=== PATIENT | female | born 1965 | race Caucasian/White ===

== ENCOUNTER 2025-10-04 10:24 | Outpatient (AMB) | payer OTHER, SELFPAY ==
--- OUTSIDE RECORDS SUMMARY | 2025-09-30 08:35 | XMS_ITS | Encounter Summary ---
Author Organization [facility] [place] [address] Care Team Providers Care Resident Buyer Name Role Phone Slime Colon MD Primary Care Prov ider Encounter Details Date Type Department Care Team ([facility] Contact Info) Description 09/30/2025 8:35 AM EST Lab Draw Station - [address] [id number] Chronic diarrhea; Abdominal cramping Social History Tobacco Use Types Packs/Day Years Used Date Smoking Tobacco: Former Cigarettes Smokeless Tobacco: Never Alcohol Use Standard Drinks/Week Comments Yes 1.7 (1 standard drink = 0.6 oz p ure alcohol) Housing Instability Answer Date Recorde d Are you worried that in the next 2 months you may not have stable housing? No 08/30/2024 Food Access & Nutrition Answer Date Rec orded Do you have access to a vari ety of food including fruits and vegetables? Yes 08/30/2024 Access to Healthcare Answer Date Record ed Within the last 3 months, ho w many times did you visit the emergency department for your medical care? 0 08/30/2024 Health Literacy Answer Date Recorded How often do you need to hav e someone help you when you read instructions, pamphlets, or other written material from your doctor or pharmacy? Never 08/30/2024 Caregiver: How often do you need to have someone help you when you read instructions, pamphlets, or other written material from your doctor or pharmacy? Not on file 08/30/2024 Financial Risk Answer Date Recorded How hard is it for you to pa y for the very basics like food, housing, medical care, and air conditioning / heating? Not very hard 08/30/2024 Transportation Answer Date Recorded Has the lack of transportati on kept you from meetings, work, or from getting things needed for daily living? No Has the lack of transportati on kept you from medical appointments or from getting medications? No 08/30/2024 Social Isolation Answer Date Recorded How often do you feel lonely or isolated from th ose around you? Never 08/30/2024 Food Risk Answer Date Recorded Within the past 12 months we worried whether our food would run out before we got money to buy more. Never true 08/30/2024 Within the past 12 months th e food we bought just didn't last and we didn't have money to get more. Never true 08/30/2024 Dependent Care Answer Date Recorded Do you need help finding or paying for care for your loved ones. For example, child care giver or elderly care for an older adult? No 08/30/2024 Education Answer Date Recorded Do you think completing more education or training, like finishing a GED, going to college, or learning a trade, would be helpful for you? No 08/30/2024 Employment and Income Answer Date Recor ded During the last four weeks, have you been actively looking for work? No 08/30/2024 Living Situation Answer Date Recorded What is your living situation? Unrecognized valu e 08/30/2024 Comments No Sex and Gender Information Value Date Recorded Sex Assigned at Female 10/05/2024 9:45 AM EST Legal Sex Female 10:21 PM EST Gender Identity Female 10/05/2024 9:45 AM EST Sexual Orientation Straight 10/05/2024 9: 45 AM EST documented as of this encounter Plan of Treatment Pending Results Name Type Priority Associated Diagnoses Date /Time Helicobacter pylori antigen, stool Lab Routine Chronic diarrhea Abdominal cramping 09/30/2025 8:39 AM EST documented as of this encounter Procedures Procedure Name Priority Date/Time Associated Diagnosis Comments GASTROINTESTINAL PATHOGENS BY PCR Routine 09/30/2025 8:39 AM EST Chronic diarrhea Abdominal cramping CALPROTECTIN, STOOL Routine 09/30/2025 8 :39 AM EST Chronic diarrhea Abdominal cramping documented in this encounter Results * Gastrointestinal pathogens molecular study (09/30/2025 8:39 AM EST) Campylobacter Detection by PCR Not Detected Not Detected LAB MICROBIOLOGY METHOD 5 12:45 PM [facility] Plesiomonas shigelloides Detection by PCR Not Detected Not Detected LAB MICROBIOLOGY METHOD 5 12:45 PM [facility] Salmonella Detection by PCR Not Detected Not Detected LAB MICROBIOLOGY METHOD 5 12:45 PM [facility] Vibrio Detection by PCR Not Detected Not Detected LAB MICROBIOLOGY METHOD 5 12:45 PM [facility] Vibrio cholerae Detection by PCR Not Detected Not Detected LAB MICROBIOLOGY METHOD 5 12:45 PM [facility] Yersinia enterocolitica Detection by PCR Not Detected Not Detected LAB MICROBIOLOGY METHOD 5 12:45 PM [facility] Enteroaggregative E coli EAEC Detection by PCR Not Detected Not Detected LAB MICROBIOLOGY METHOD 5 12:45 PM [facility] Enteropathogenic E coli EPEC Detection Not Detected Not Detected LAB MICROBIOLOGY METHOD 5 12:45 PM [facility] Enterotoxigenic E coli ETEC LTST Detection Not Detected Not Detected LAB MICROBIOLOGY METHOD 5 12:45 PM [facility] Shiga-like toxin producing E coli STEC STX1 STX2 Det Not Detected Not Detected LAB MICROBIOLOGY METHOD 5 12:45 PM [facility] Shigella Enteroinvasive E coli EIEC Detection Not Detected Not Detected LAB MICROBIOLOGY METHOD 5 12:45 PM [facility] Cryptosporidium Detection by PCR Not Detected Not Detected LAB MICROBIOLOGY METHOD 5 12:45 PM [facility] Cyclospora cayetanensis Detection by PCR Not Detected Not Detected LAB MICROBIOLOGY METHOD 5 12:45 PM EST [facility] Entamoeba histolytica Detection by PCR Not Detected Not Detected LAB MICROBIOLOGY METHOD 5 12:45 PM [facility] Giardia lamblia Detection by PCR Not Detected Not Detected LAB MICROBIOLOGY METHOD 5 12:45 PM [facility] Adenovirus F 40 41 Detection by PCR Not Detected Not Detected LAB MICROBIOLOGY METHOD 5 12:45 PM [facility] Astrovirus Detection by PCR Not Detected Not Detected LAB MICROBIOLOGY METHOD 5 12:45 PM [facility] Norovirus GI GII Detection by PCR Not Detected Not Detected LAB MICROBIOLOGY METHOD 5 12:45 PM [facility] Sapovirus Detection by PCR Not Detected Not Detected LAB MICROBIOLOGY METHOD 5 12:45 PM [facility] Rotavirus A Detection by PCR Not Detected Not Detected LAB MICROBIOLOGY METHOD 5 12:45 PM [facility] Stool Rectum structure / Unknown Non-blood Collection / Unknown 09/30/2025 8:39 AM EST 09/30/2025 8:39 AM EST [facility] - 09/30/2025 12:45 PM EST PCR testing is much more sensitive than traditional techniques and allows for the detection of low numbers of stool pathogens. The clinical correlation of PCR results with the need for treatment and clinical outcomes has not been established. Therefore the results of PCR testing for stool pathogens must be taken into clinical context when making treatment decisions. This is a diagnostic test only, repeat testing for cure is not advised. You may consider infectious disease consult for additional guidance. Testing Performed by [facility] Latonia Rousseau NP LAB MICROBIOLOGY - GENERAL JIM NUÑEZ Final Result [facility] [address] [place] [address], * Calprotectin, stool (09/30/2025 8:39 AM EST) Calprotectin, Fecal 9.2 <50 mcg/g 10/03/2025 2:36 PM EST [facility] Comment: <50 mcg/g Normal 50 - 120 mcg/g Borderline >120 mcg/g Abnormal Borderline results suggest repeat testing in 4 to 6 weeks. Test performed at [facility], [address], [place] [address] Dena Whaley MD, PhD - Lottery Office Manager Stool Rectum structure / Unknown Non-blood Collection / Unknown 09/30/2025 8:39 AM EST 09/30/2025 8:39 AM EST Latonia Rousseau [facility] [facility] BODY FLUIDS AND STOOLS JIM NUÑEZ Final Result [facility] [address] [place] [address] documented in this encounter Visit Diagnoses Diagnosis Chronic diarrhea Diarrhea Abdominal cramping Abdominal pain, unspecified site documented in this encounter Additional Health Concerns Infection Onset Date Last Indicated Resolved Time Gastrointestinal Rule-Out 09/30/2025 09/30/2025 12:45 PM EST C. difficile Rule-Out 09/30/2025 09/30/20252024 11:33 AM EST Assessment Noted Time PHQ-9 Depression Total Score: 4 12/31/19 1:03 PM EDT documented as of this encounter Care Teams Resident Buyer Relationship Specialty Start Date End Date Slime Colon MD [address] [place] [phone] PCP - General Internal Medicine 09/13/25 documented as of this encounter
--- NOTE | 2025-10-04 10:25 | MHC.OFFVIS ---
Intake Visit Reasons: 1 yr memory change Allergies No Known Allergies Allergy (Verified 10/04/25 10:28) Medication List - Last Reconciled 10/04/25 by Caren Vargas CNP cholecalciferol (vitamin D3) 50 mcg PO DAILY multivitamin 1 tab PO DAILY sertraline 100 mg PO BID HPI Comments Details: She was doing okay. Memory was stable. No work performance issues. Stress was more manageable. Sleep was okay. No significant migraines. She has history of migraines for 30+ years. She was noted to have some short-term memory problems beginning around [id number]. 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 She does not need to write notes for herself and generally doing multitasking without any problems. She sometimes loses train of thought and has occasional word finding difficulty. She had been under stress and had some disrupted sleep. She reports no head trauma. She drinks a couple of large cocktails every day. A maternal uncle developed dementia in the 70s and also maternal aunt with dementia. Her mother is 82 and is starting to become forgetful. [facility] Medical History (Updated 10/04/25 @ 10:32 by Caren Vargas CNP) Migraine Anxiety Review of Systems Const Denies chills, Denies daytime sleepiness, Denies difficulty sleeping, Denies fatigue, Denies fever(s), Denies frequent falls, Denies headache(s), Denies increased appetite, Denies poor appetite, Denies snoring, Denies weakness, Denies weight gain and Denies weight loss Eyes Denies loss of vision ENT Denies vertigo, Denies dizziness, Denies headache(s) and Denies neck pain Card Denies chest pain at rest, Denies chest pain with activity, Denies syncope, Denies leg edema, Denies palpitations, Denies dyspnea and Denies dyspnea on exertion Resp Denies cough, Denies dyspnea, Denies dyspnea on exertion and Denies snoring GI Denies abdominal pain, Denies constipation, Denies heartburn, Denies diarrhea and Denies nausea Denies urinary frequency, Denies urinary incontinence and Denies urinary urgency Musc Denies abnormal gait, Denies back pain, Denies myalgias, Denies arthralgias, Denies neck pain, Denies numbness and Denies tingling Neuro Denies abnormal gait, Denies vertigo, Denies dizziness, Denies syncope, Denies frequent falls, Denies headache(s), Denies lack of coordination, Denies loss of vision, Reports memory loss, Denies numbness, Denies Other visual disturbances, Denies restless legs, Denies seizure-like activity, Denies tingling, Denies paresthesias, Denies tremor(s) and Denies weakness Psych Reports anxiety, Denies depression, Denies auditory hallucinations, Reports memory loss and Denies visual hallucinations Endo Denies fatigue and Denies palpitations Physical Exam Const Other: General Appearance:? normal, in no acute distress. Heart:? S1, S2 normal, no murmurs. Lungs:? clear anteriorly and posteriorly. Musculoskeletal:? normal. Extremities:? no edema. Psych:? alert, oriented, cognitive function intact, cooperative with exam. Neuro Other: Abnormal Neurological Findings:?none.? Mental Status: alert and oriented X 3. Normal attention, orientation, memory, and affect. Cranial Nerves: Pupils are equal, round, and reactive to light. External ocular muscles are intact. Visual lauren are full, no ptosis. Face is symmetrical, no facial weakness or droop. Facial sensations are normal. Tongue protrudes in midline. Palate elevates symmetrically. Shoulder shrugging is normal Motor Examination: Normal muscle tone, bulk and strength. No atrophy or fasciculations. No drift of the extended upper extremities. DTR 2+. Plantars are flexor. Sensory Exam: Normal light touch, temperature, pinprick, vibration, and joint-position sensations. Rhomberg sign is absent. Coordination: No ataxia. No titubation. Gait Exam: Within normal limits. Cerebellar Signs: [id number] is okay. Extrapyramidal System: No tremor, rigidity with normal facial expressions. No bradykinesia. No bradyphrenia. Normal arm swing and posture. No propulsion or retropulsion. Speech: Normal. MMSE Level of Consciousness: Alert. Orientation: Knows correct year, month, date, day and season. Knows correct city, county and state. Knows correct location and floor. Registration: Able to register 3 objects. Attention: Serial 7's performed accurately to 65. Recall: Able to recall 3 out of 3 objects. Language: Normal spontaneous speech, fluency, repetition, naming, comprehension, reading, and writing. Total Score: 30/30. Results Reviewed Results Reviewed: 08/23/24 EEG- WNL Labs normal except low Vitamin D MRI brain normal except 2 tiny white matter hyperintensities. Assessment & Plan Assessment & Plan (1) Memory change: Code(s): R41.3 - Other amnesia Category: Medical Plan: Stay physically and socially active. Follow up in 1 year or sooner as needed. Coding Level of Care Code Est Pt Level 3 (52689) Diagnoses Memory change R41.3
--- OUTSIDE RECORDS SUMMARY | 2025-10-04 13:07 | XMS_ITS | Encounter Summary ---
Author Organization [facility] [place] [address] Care Team Providers Care Laboratory Veterinarian Name Role Phone Slime Colon MD Primary Care Prov ider Encounter Details Date Type Department Care Team ([facility] st Contact Info) Description 10/03/2025 Results Follow-Up Gastroenterology - [address] [facility] [address] [place] [address] Latonia Rousseau NP [address] [facility] [address] [place] [address] Social History Tobacco Use Types Packs/Day Years [...] for your loved ones. For example, child and family counselor or elderly care for an older adult? [...] as of this encounter Plan of Treatment Not on file documented as of this encounter Visit Diagnoses Not on filedocumented in this encounter Additional Health Concerns Assessment Noted Time PHQ-9 Depression Total Score: 4 12/31/19 25 1:03 PM EDT documented as of this encounter Care Teams Laboratory Veterinarian Relationship Specialty Start Date End Date Slime Colon MD [address] [place] [phone] PCP - General Internal Medicine 09/13/25 documented as of this encounter
--- OUTSIDE RECORDS SUMMARY | 2025-10-04 13:07 | XMS_ITS ---
Author Name [facility] Organization Unknown Care Team Organization Name Specialty Phone Email Start Date End Da tad [facility] Termed, PROVIDER Primary Care 08/27/202205/20
--- OUTSIDE RECORDS SUMMARY | 2025-10-04 13:07 | XMS_ITS | Clinical Summary ---
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 Active SUMAtriptan (IMITREX) 50 mg tablet Take 1 tab at the first sign of a migraine by mouth. May repeat dose once after 2 hours, if needed 01/28/2023 Active multivitamin with minerals tablet Take 1 tablet by mouth 1 (one) time each day. Active cholecalciferol (VITAMIN D-3) 50 mcg (2,000 unit) tablet Take 1 tablet (2,000 Units total) by mouth 1 (one) time each day. Active sertraline (ZOLOFT) 100 mg tablet Take 1 tablet by mouth twice daily 180 tablet 1 06/17/2025 Active Active Problems Problem Noted Date Diagnosed Date Trigger finger, unspecified finger 08/23/2024 Sinus bradycardia 07/14/2023 Left lateral epicondylitis 09/12/2021 Depression 12/22/2020 Assessment & Plan (05/19/2025 10:20 AM EDT): Symptoms are well controlled on Sertraline 200mg a day. Will continue same medication ELENA (generalized anxiety disorder) 12/22/2020 Basal cell carcinoma (BCC) o f skin of right lower eyelid including canthus 03/08/2019 Obesity 09/06/2016 Dyslipidemia 02/20/2016 Spider veins 02/20/2016 Colon polyp 06/27/2014 Overview (08/23/2024): Colonoscopy 06/26/14 small asc. Polyp = tubualr adenoma. Needs repeat colonoscopy 06/2019 Hemorrhoids 06/27/2014 Lower extremity edema 03/24/2013 Abnormal Pap smear of cervix 01/24/2006 Headache 01/24/2006 Encounters Date Type Department Care Team Description 10/03/2025 Results Follow-Up Gastroenterology - [address] [phone] Latonia Rousseau NP 09/30/2025 8:35 AM EST Lab Draw Station - [address] [phone] Chronic diarrhea; Abdominal cramping 09/13/2025 9:40 AM EST Consult Gastroenterology - [address] [phone] Latonia Rousseau, MELISA Chronic diarrhea (Primary Dx); Abdominal cramping; Marijuana use, continuous from Last 3 Months Immunizations Immunization Administration Dates Next Due H1N1 Inj Preservative Free 09/27/2009 Influenza Quadravalent, MDCK , 0.5ml, preservative free (Flucelvax) 6mo and older 12/22/2020,11/30/2018 Influenza trivalent, 0.5mL, preservative free (Fluarix; FluLaval; Fluzone) ages 6mo and older (Afluria) 3 years and older 09/06/2016,07/03/2012,09/05/2010,2008 Tdap Tetanus diptheria acell ular pertussis (Boostrix; Adacel) 7yo and older 11/30/2018,05/27/2008 Surgical History Surgery Date Site/Laterality Comments OTHER SURGICAL HISTORY 06/2007 PROCEDURE: MAMMOGRAM BREAST REDUCTION 12/2006 PROCEDURE: DE BREAST REDUCTION COLONOSCOPY 06/26/2014 PROCEDURE: DE COLONOSCOPY STOMA W/RMVL LEONARD POLYP/OTH LES SNARE; COMMENT: small polyp in asc. colon -> tubular adenoma HYSTERECTOMY 2013 PROCEDURE: HISTORICAL HYSTERECTOMY; COMMENT: still has ovaries BELT ABDOMINOPLASTY 2010 PROCEDURE: HISTORICAL TUMMY TUCK; COMMENT: Dr. Rangel; [place] COLONOSCOPY 01/31/2021 N/A PROCEDURE: HISTORICAL COLONOSCOPY; COMMENT: negative TRIGGER FINGER RELEASE HAND SURGERY Medical History Medical History Date Comments Headache(784.0) DX:Headache(784. 0) Peritonsillar abscess 1994 DX:Periton sillar abscess Anxiety state, unspecified DX:An xiety state, unspecified Other abnormal Papanicolaou smear of cervix and cervical HPV(795.09) DX:Other abnormal Papa nicolaou smear of cervix and cervical HPV(795.09) History of menorrhagia DX:Histor y of menorrhagia Panic disorder 09/06/2016 DX:Panic disorde r History of dysplastic nevus 08/18/2006 DX:H istory of dysplastic nevus; COMMENT: 12/22 abdominal wall (mildly) Obesity 09/06/2016 DX:Obesity Dyslipidemia 02/20/2016 DX:Dyslipidemia Spider veins 02/20/2016 DX:Spider veins Colon polyp 06/27/2014 DX:Colon polyp; COMMENT: Colonoscopy 06/26/14 small asc. Polyp = tubualr adenoma. Needs repeat colonoscopy 06/2019 Lower extremity edema 03/24/2013 DX:Lower e xtremity edema History of basal cell carcinoma 12/28/2018 DX:History of basal cell carcinoma; COMMENT: 12/08 right orbital rim (nodular) Trigger finger Rotator cuff syndrome Tennis elbow Family History Medical History Relation Name Comments Ovarian cancer Aunt 1 Paternal stomach cance r Breast cancer Aunt 2 Maternal in her 60s Other: Colitis Father Coronary artery disease Maternal Grandfather Diabetes Maternal Grandmother Melanom a Depression Mother Parkinson's Disease Paternal Grandfather Pancreatic cancer Paternal Grandmother Cancer Sister 1 Kary Depression Sister 1 Kary ovarian cancer Other: Anxiety Sister 2 Relation Name Status Comments Aunt 1 Paternal Aunt 2 Maternal Alive Daughter 1 Alive Daughter 2 Alive Father Alive Maternal Grandfather Maternal Grandmother Alive Mother Alive Paternal Grandfather Paternal Grandmother Sister 1 Kary Alive Sister 2 Alive Son Alive Social History Tobacco Use Types Packs/Day Years Used Date Smoking Tobacco: Former Cigarettes Smokeless Tobacco: Never Tobacco Cessation:Counseling Given: Not Answered Alcohol Use Standard Drinks/Week Comments Yes 1.7 [...] for your loved ones. For example, child nutrition manager or elderly care for an older adult? [...] Orientation Straight 10/05/2024 9: 45 AM EST Last Filed Vital Signs Vital Sign Reading Time Taken Comments Blood Pressure 138/82 09/13/2025 9:30 AM EST Pulse 55 09/13/2025 9:30 AM EST Temperature 36.3 C (97.4 F) 05/19/2025 9:33 AM EDT Respiratory Rate 16 05/19/2025 9:33 AM EDT Oxygen Saturation 96% 09/13/2025 9:30 AM EST Inhaled Oxygen Concentration - - Weight 101 kg (222 lb 3.2 oz) 09/13/2025 9:30 AM EST Height 170.2 cm (5' 7 ) 09/13/2025 9:30 AM EST Body Mass Index 34.8 09/13/2025 9:30 AM EST Plan of Treatment Health Maintenance Due Date Last Done Comments Breast Cancer Screening 1965 Drug Screen 1966 Non-Opioid Controlled Substance Agreement 1966 Hepatitis B Vaccines (1 of 3 - 19+ 3-dose series) 1985 Zoster Vaccines (1 of 2) 1985 Pneumococcal Vaccine: 50+ Years (1 of 1 - PCV) 02/17/2016 COVID-19 Vaccine (3 - Pfizer risk series) 06/25/2021 05/28/2021, 05/10/2021 HIV Screening 09/28/2022 Cervical Cancer Screening: Pap Smear 07/26/2024 07/26/2021 Influenza Vaccine (#1) 2025 , 11/30/2018, 09/06/2016, Additional history exists Social Influencers of Health Screening 08/30/2025 08/30/2024 DTaP,Tdap,and Td Vaccines (3 - Td or Tdap) 11/30/2028 11/30/2018, 05/27/2008 Cholesterol Screening (Lipid Panel) 05/19/2030 05/19/2025, 08/02/2024, 08/02/2024 Colorectal Cancer Screening: Colonoscopy 01/31/2031 01/31/2021 RSV Immunization Adult Patients (1 - 1-dose 75+ series) 2041 Hepatitis C Screening Completed 12/22/2020 Depression Screening Completed 12/30/2024 HIB Vaccines Aged Out No longer eligi ble based on patient's age to complete this topic HPV Vaccines Aged Out No longer eligi ble based on patient's age to complete this topic Hepatitis A Vaccines Aged Out No long er eligible based on patient's age to complete this topic IPV Vaccines Aged Out No longer eligi ble based on patient's age to complete this topic MMR Vaccines Aged Out No longer eligi ble based on patient's age to complete this topic Meningococcal ACWY Vaccine Aged Out N o longer eligible based on patient's age to complete this topic Meningococcal B Vaccine Aged Out No l onger eligible based on patient's age to complete this topic RSV Immunization Patients Under 20 months Aged Out No longer eligible based on patient's age to complete this topic Varicella Vaccines Aged Out No longer eligible based on patient's age to complete this topic Procedures Procedure Name Priority Date/Time Associated Diagnosis Comments CALPROTECTIN, STOOL Routine 09/30/2025 8 :39 AM EST Chronic diarrhea Abdominal cramping GASTROINTESTINAL PATHOGENS BY PCR Routine 09/30/2025 8:39 AM EST Chronic diarrhea Abdominal cramping LIPID PANEL WITH REFLEX TO DIRECT LDL Routine 05/19/2025 10:15 AM EDT Dyslipidemia HM PAP SMEAR Routine 07/26/2021 COLONOSCOPY Routine 01/31/2021 HEPATITIS C SCREENING Routine 12/22/2020 from Last 3 Months or Most Recently Relevant to Health Maintenance Results * Gastrointestinal pathogens molecular study (09/30/2025 8:39 AM EST) Campylobacter Detection by PCR Not Detected Not Detected LAB MICROBIOLOGY METHOD 5 12:45 PM EST [facility] Plesiomonas shigelloides Detection by PCR Not Detected Not Detected LAB MICROBIOLOGY METHOD 5 12:45 PM [facility] Salmonella Detection by PCR Not Detected Not Detected LAB MICROBIOLOGY METHOD 5 12:45 PM [facility] Vibrio Detection by PCR Not Detected Not Detected LAB MICROBIOLOGY METHOD 5 12:45 PM [facility] Vibrio cholerae Detection by PCR Not Detected Not Detected LAB MICROBIOLOGY METHOD 5 12:45 PM [facility] Yersinia enterocolitica Detection by PCR Not Detected Not Detected LAB MICROBIOLOGY METHOD 5 12:45 PM [facility] Enteroaggregative E coli EAEC Detection by PCR Not Detected Not Detected LAB MICROBIOLOGY METHOD 5 12:45 PM [facility] Enteropathogenic E coli EPEC Detection Not Detected Not Detected LAB MICROBIOLOGY METHOD 5 12:45 PM [facility] Enterotoxigenic E coli ETEC LTST Detection Not Detected Not Detected LAB MICROBIOLOGY METHOD 5 12:45 PM [facility] Shiga-like toxin producing E coli STEC STX1 STX2 Det Not Detected Not Detected LAB MICROBIOLOGY METHOD 5 12:45 PM [facility] Shigella Enteroinvasive E coli EIEC Detection Not Detected Not Detected LAB MICROBIOLOGY METHOD 5 12:45 PM [facility] Cryptosporidium Detection by PCR Not Detected Not Detected LAB MICROBIOLOGY METHOD 5 12:45 PM [facility] Cyclospora cayetanensis Detection by PCR Not Detected Not Detected LAB MICROBIOLOGY METHOD 5 12:45 PM [facility] Entamoeba histolytica Detection by PCR Not Detected Not Detected LAB MICROBIOLOGY METHOD 5 12:45 PM [facility] Giardia lamblia Detection by PCR Not Detected Not Detected LAB MICROBIOLOGY METHOD 5 12:45 PM [facility] Adenovirus F 40 41 Detection by PCR Not Detected Not Detected LAB MICROBIOLOGY METHOD 5 12:45 PM EST [facility] Astrovirus Detection by PCR Not Detected Not Detected LAB MICROBIOLOGY METHOD 5 12:45 PM EST [facility] Norovirus GI GII Detection by PCR Not Detected Not Detected LAB MICROBIOLOGY METHOD 5 12:45 PM EST [facility] Sapovirus Detection by PCR Not Detected Not Detected LAB MICROBIOLOGY METHOD 5 12:45 PM [facility] Rotavirus A Detection by PCR Not Detected Not Detected LAB MICROBIOLOGY METHOD 5 12:45 PM [facility] Stool Rectum structure / Unknown Non-blood Collection / Unknown 09/30/2025 8:39 AM EST 09/30/2025 8:39 AM EST [facility] - 09/30/2025 12:45 PM EST PCR [...] PCR Latonia Rousseau NP [facility] Final Result [facility] [address] [place] [address], * Calprotectin, stool (09/30/2025 8:39 AM EST) Calprotectin, Fecal 9.2 <50 mcg/g 10/03/2025 2:36 PM EST [facility] Comment: <50 mcg/g Normal 50 - 120 mcg/g Borderline >120 mcg/g Abnormal Borderline results suggest repeat testing in 4 to 6 weeks. Test performed at [facility], [address], [place] [address] Dena Whaley MD, PhD - Cyber Security Architect Stool Rectum structure / Unknown Non-blood Collection / Unknown 09/30/2025 8:39 AM EST 09/30/2025 8:39 AM EST Latonia Rousseau SHOPPING CENTRE MANAGER LAB BODY FLUIDS AND STOOLS JIM NUÑEZ Final Result [facility] [address] [place] [address] * (ABNORMAL) Lipid panel with reflex to direct LDL (05/19/2025 10:15 AM EDT) Cholesterol 221(H) 0 - 200 mg/dL LAB CHEMISTRY METHOD 05/19/2025 1:12 PM EDT [facility] Triglycerides 149 0 - 150 mg/dL LAB CHEMISTRY METHOD 05/19/2025 1:12 PM EDT [facility] HDL 48 >=40 mg/dL LAB CHEMISTRY METHOD 05/19/2025 1:12 PM EDT [facility] LDL Calculated 143(H) 0 - 100 mg/dL LAB CHEMISTRY METHOD 05/19/2025 1:12 PM EDT [facility] VLDL Cholesterol Duong 29.8 mg/dL LAB CHEMISTRY METHOD 05/19/2025 1:12 PM EDT [facility] Non HDL Chol. (LDL+VLDL) 173(H) <145 mg/dL LAB CHEMISTRY METHOD 05/19/2025 1:12 PM EDT [facility] Chol/HDL Ratio 4.6(H) 0.0 - 4.4 LAB CHEMISTRY METHOD 05/19/2025 1:12 PM T [facility] Blood Venous blood specimen / Unknown Venipuncture / Unknown 05/19/2025 10:15 AM EDT 05/19/2025 10:15 AM EDT us Milagro Shun PA LAB BLOOD ORDERABLES Final Resul t [facility] ([facility]) [facility] [address] [place] [address], * Pap Smear (07/26/2021) Pap smear No Interpretation , Abstracted Historical Provider MD HEALTH MAINTENANCE Final Result * Colonoscopy (01/31/2021) Colonoscopy No Interpretation , Abstracted Anatomical Region Laterality Modality Other Historical Provider MD HEALTH MAINTENANCE Final Result * Hepatitis C Screening (12/22/2020) Hepatitis C Screening Abstracted Historical Provider MD HEALTH MAINTENANCE Final Result from Last 3 Months or Most Recently Relevant to Health Maintenance Insurance [employer] Care 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
== END 2025-10-04 10:37 | disposition home or self-care (01) ==
LOC: HO.HSM 10:24
PROVIDERS: PCP Internal Medicine; Visit Provider Registered Nurse
DX: R41.3 Other amnesia (principal)
CPT/HCPCS: 99213

== ENCOUNTER → 2025-10-04 10:24 | Outpatient (BNVA) | payer OTHER, SELFPAY | PROVIDERS: PCP Internal Medicine; Visit Provider Registered Nurse | DX: R41.3 Other amnesia (principal) | CPT/HCPCS: 99212 ==